=== PATIENT | female | born 1945 | race Two or more races ===

== ENCOUNTER → 2018-05-23 | Outpatient (CLI) | payer OTHER, MEDICAID | END | disposition home or self-care (01) | LOC: Rad HDHVI 14:50 | PROVIDERS: ATTEND Internal Medicine Cardiovascular Disease | DX: I08.1 Rheumatic disorders of both mitral and tricuspid valves (principal); I27.20 Pulmonary hypertension, unspecified; I48.0 Paroxysmal atrial fibrillation; I50.33 Acute on chronic diastolic (congestive) heart failure; I20.0 Unstable angina | CPT/HCPCS: 93306 ==

== ENCOUNTER → 2018-08-11 | Outpatient (CLI) | payer OTHER, MEDICAID ==
[~2018-08-11] MED LIST: ADENOSINE 90 MG/30 ML INJ IV ONE; ADENOSINE 93 MG in GIVE UN-DILUTED 0 ML IV ONE
== END | disposition home or self-care (01) ==
LOC: Rad HDHVI 08:10
PROVIDERS: ATTEND Internal Medicine Cardiovascular Disease
DX: Z01.810 Encounter for preprocedural cardiovascular examination (principal)
CPT/HCPCS: 78452; 93005; 96374; 96375; A9500; J0153